=== PATIENT | female | born 1980 | race Caucasian/White ===

== ENCOUNTER 2017-07-14 19:43 | Inpatient (IN) | payer OTHER ==
[~2017-07-14] VITALS: Ht 167.6 cm; Wt 95.0 kg
[~2017-07-14 19:43] MED LIST: ALBUTEROL SULF8.5 GM IH; AMBIEN CR12.5 MG PO; BACTRIM,SEPT1 TABLET PO; BENADRYL25 MG PO; BLOOD PRESSURE MED; CLINDAMYCIN HC300 MG PO; DICLOFENAC SODI75 MG PO; DULOXETINE HCL30 MG PO; ENDOCET 5-3251 EACH PO; ENTOCORT EC3 MG PO; HYDROCHLOROTHIA25 MG PO; HYDROXYZINE HCL50 MG PO; IRON325 MG PO; LEVAQUIN750 MG PO; LISINOPRIL10 MG PO; LISINOPRIL5 MG PO; METHADONE 22 MG/1 ML PO; METHADONE PO; METHADONE10 MG PO; METHYLDOPA250 MG PO; Motrin PO; NEURONTIN100 MG PO; NEURONTIN600 MG PO; PAROXETINE HCL10 MG PO; PREDNISONE50 MG PO; PRENATAL TABLE1 EAC3 PO; TRILEPTAL300 MG PO; WELBUTRIN PO; ZESTRIL,PRINIVI10 MG PO; ZOFRAN ODT8 MG PO; ZOLOFT100 MG PO; ZOLOFT25 MG PO; lisinopril PO; methadone PO
[2017-07-14 21:58] LABS: HEMATOCRIT 43.7 % (36.0-46.0); HEMOGLOBIN 15.2 G/DL (11.9-15.5); MCH 31.9 PG (29.0-34.0); MCHC 34.8 G/DL (30.0-36.0); MCV 91.8 FL (83-99); PLATELET COUNT 295 K/uL (156-360); RBC DIS.WIDTH-CV 13.4 % (11.8-14.6); RBC DIS.WIDTH-SD 45.4 % (39-53); RED BLOOD COUNT 4.76 M/uL (3.80-5.20); WHITE BLOOD COUNT 11.3 K/uL (4.1-10.2)
[2017-07-14 22:15] LABS: CHLORIDE 105 mEq/L (99-109); POTASSIUM 4.2 mEq/L (3.7-5.4); SODIUM 138 mEq/L (136-147)
[2017-07-14 22:17] LABS: GLUCOSE 105 mg/dL (70-99)
[2017-07-14 22:20] LABS: SERUM ETHYL ALCOHOL 199 mg/dL
[2017-07-14 22:21] LABS: CREATININE 0.9 mg/dL (0.6-1.3); GFR ESTIMATE (CALCULATED) > 59 mL/min/
[2017-07-14 22:22] LABS: UREA NITROGEN (BUN) 10 mg/dL (9-23)
[2017-07-14 22:24] LABS: ACETAMINOPHEN (TYLENOL) < 10 mcg/mL (10-30); SALICYLATE < 5.0 MG/DL (15-30)
[2017-07-15 01:37] LABS: ALBUMIN 4.2 g/dL (3.2-4.8)
[2017-07-15 01:38] LABS: MAGNESIUM 2.3 mg/dL (1.3-2.7)
[2017-07-15 01:42] LABS: TOTAL BILIRUBIN 0.8 mg/dL (0.0-1.0)
[2017-07-15 01:43] LABS: ALKALINE PHOSPHATASE 151 IU/L (3-129)
[2017-07-15 01:45] LABS: AST (GOT) 181 IU/L (2-34)
[2017-07-15 01:46] LABS: ALT (GPT) 125 IU/L (3-49); DIRECT BILIRUBIN 0.5 mg/dL (0.0-0.3)
[2017-07-15 04:53] LABS: BENZODIAZEPINES, URINE SCREEN Negative (200 ng/mL)
[2017-07-15 05:42] LABS: HEMATOCRIT 38.8 % (36.0-46.0); HEMOGLOBIN 13.4 G/DL (11.9-15.5); MCH 32.3 PG (29.0-34.0); MCHC 34.5 G/DL (30.0-36.0); MCV 93.5 FL (83-99); PLATELET COUNT 241 K/uL (156-360); RBC DIS.WIDTH-CV 13.6 % (11.8-14.6); RBC DIS.WIDTH-SD 46.3 % (39-53); RED BLOOD COUNT 4.15 M/uL (3.80-5.20); WHITE BLOOD COUNT 7.2 K/uL (4.1-10.2)
[2017-07-15 06:03] LABS: ALBUMIN 3.5 g/dL (3.2-4.8); CHLORIDE 112 mEq/L (99-109); POTASSIUM 4.1 mEq/L (3.7-5.4); SODIUM 140 mEq/L (136-147)
[2017-07-15 06:06] LABS: GLUCOSE 80 mg/dL (70-99)
[2017-07-15 06:08] LABS: TOTAL PROTEIN 7.5 g/dL (6.4-8.3)
[2017-07-15 06:09] LABS: ALKALINE PHOSPHATASE 132 IU/L (3-129); CREATININE 0.8 mg/dL (0.6-1.3); GFR ESTIMATE (CALCULATED) > 59 mL/min/
[2017-07-15 06:10] LABS: UREA NITROGEN (BUN) 9 mg/dL (9-23)
[2017-07-15 06:11] LABS: AST (GOT) 138 IU/L (2-34)
[2017-07-15 06:12] LABS: ALT (GPT) 112 IU/L (3-49)
[2017-07-15 20:27] VITALS: BP 161/99
[2017-07-16 00:57] VITALS: BP 157/105
[2017-07-16 05:53] LABS: CHLORIDE 102 MEQ/L (99-109); POTASSIUM 4.4 MEQ/L (3.7-5.4); SODIUM 135 MEQ/L (136-147)
[2017-07-16 05:59] LABS: CREATININE 0.7 MG/DL (0.6-1.3); GFR ESTIMATE (CALCULATED) > 59 mL/min/; UREA NITROGEN (BUN) 10 mg/dL (9-23)
[2017-07-16 06:01] LABS: GLUCOSE 108 mg/dL (70-99)
[2017-07-16 08:50] VITALS: BP 133/103
[2017-07-16 11:09] LABS: HEMATOCRIT 39.7 % (36.0-46.0); HEMOGLOBIN 13.6 G/DL (11.9-15.5); MCH 31.4 PG (29.0-34.0); MCHC 34.3 G/DL (30.0-36.0); MCV 91.7 FL (83-99); PLATELET COUNT 241 K/uL (156-360); RBC DIS.WIDTH-CV 12.8 % (11.8-14.6); RBC DIS.WIDTH-SD 42.8 % (39-53); RED BLOOD COUNT 4.33 M/uL (3.80-5.20); WHITE BLOOD COUNT 9.3 K/uL (4.1-10.2)
[2017-07-16 11:16] LABS: ALBUMIN 3.9 G/DL (3.2-4.8); ALKALINE PHOSPHATASE 124 IU/L (3-129); ALT (GPT) 83 IU/L (3-49); AST (GOT) 81 IU/L (2-34); DIRECT BILIRUBIN 0.4 mg/dL (0.0-0.3); TOTAL BILIRUBIN 1.1 MG/DL (0.0-1.0); TOTAL PROTEIN 7.4 G/DL (6.4-8.3)
[2017-07-16 11:48] VITALS: BP 118/77
[2017-07-16 12:04] LABS: APPEARANCE CLEAR ((CLEAR)); BILIRUBIN NEGATIVE; BLOOD NEGATIVE; COLOR YELLOW ((YELLOW)); GLUCOSE (STRIP) NEGATIVE; KETONES NEGATIVE; LEUKOCYTES NEGATIVE; NITRITE NEGATIVE; PROTEIN (STRIP) NEGATIVE; SPECIFIC GRAVITY 1.008 (1.000-1.030); UCUL ADDED? NO
[2017-07-16 16:27] VITALS: BP 143/98
[2017-07-16 19:51] VITALS: BP 157/88
[2017-07-16 23:51] VITALS: BP 126/85
[2017-07-17 03:51] VITALS: BP 118/76
[2017-07-17 07:25] VITALS: BP 130/91
[2017-07-17 14:05] VITALS: BP 134/83
== END 2017-07-17 14:12 | DRG 918 ==
LOC: EME 19:43 → EDOF 07-15 00:56 → 4EAST 07-15 00:56 → ENRESERV 07-15 00:58 → EDOF 07-15 13:53 → ENRESERV 07-15 16:17 → 4EAST 07-15 19:45
PROVIDERS: Emergency Medicine; Hospitalist
DX: T40.3X1A Poisoning by methadone, accidental (unintentional), initial encounter (principal); F32.9 Major depressive disorder, single episode, unspecified; R09.02 Hypoxemia; G89.4 Chronic pain syndrome; F10.129 Alcohol abuse with intoxication, unspecified; F41.9 Anxiety disorder, unspecified; Y90.6 Blood alcohol level of 120-199 mg/100 ml; I10 Essential (primary) hypertension; F14.10 Cocaine abuse, uncomplicated; R45.851 Suicidal ideations; F11.10 Opioid abuse, uncomplicated; M54.9 Dorsalgia, unspecified; Z91.14 Patient's other noncompliance with medication regimen; Z88.0 Allergy status to penicillin; Y92.9 Unspecified place or not applicable; Z88.2 Allergy status to sulfonamides; Z88.8 Allergy status to other drugs, medicaments and biological substances; Z80.3 Family history of malignant neoplasm of breast; Z80.1 Family history of malignant neoplasm of trachea, bronchus and lung; Z91.19 Patient's noncompliance with other medical treatment and regimen
CPT/HCPCS: 71045; 74177; 74178; 80048; 80053; 80076; 80306 90; 81003; 82948; 83735; 85027; 93005; 99281; 99285; G0480; J1650; J2310; J3411; J7030; J7040; J7050

== ENCOUNTER 2017-07-17 13:17 | Inpatient (IN) | payer OTHER ==
[~2017-07-17] VITALS: Ht 167.6 cm; Wt 94.7 kg
[2017-07-17 14:19] VITALS: BP 152/80
[2017-07-17 14:33] VITALS: BP 152/80
[2017-07-17 16:00] VITALS: BP 100/57
[2017-07-18 07:50] VITALS: BP 118/79
[2017-07-18 15:26] VITALS: BP 115/71
[2017-07-19 07:47] VITALS: BP 114/68
[2017-07-19 16:02] VITALS: BP 113/76
[2017-07-19 18:49] VITALS: BP 114/72
[2017-07-20 07:48] VITALS: BP 119/80
[2017-07-20 15:34] VITALS: BP 129/72
[2017-07-21 07:54] VITALS: BP 113/74
[2017-07-21 15:41] VITALS: BP 121/69
[2017-07-22 00:35] VITALS: BP 135/92
[2017-07-22 08:02] VITALS: BP 123/88
[2017-07-22] MEDS ORDERED: CITALOPRAM HBR10 MG PO (09:13)
== END 2017-07-22 10:52 | disposition other institution (70) | DRG 885 ==
LOC: 1WEST 13:17
DX: F32.89 Other specified depressive episodes (principal); F11.222 Opioid dependence with intoxication with perceptual disturbance; R45.851 Suicidal ideations; R45.850 Homicidal ideations; F10.10 Alcohol abuse, uncomplicated; I10 Essential (primary) hypertension; F15.10 Other stimulant abuse, uncomplicated; G89.29 Other chronic pain; R00.0 Tachycardia, unspecified; Z63.4 Disappearance and death of family member; Z91.14 Patient's other noncompliance with medication regimen; Z90.49 Acquired absence of other specified parts of digestive tract; Z88.0 Allergy status to penicillin; Z88.2 Allergy status to sulfonamides; Z88.1 Allergy status to other antibiotic agents; Z88.5 Allergy status to narcotic agent; Z80.3 Family history of malignant neoplasm of breast; Z81.1 Family history of alcohol abuse and dependence; Z81.4 Family history of other substance abuse and dependence
CPT/HCPCS: 97150 GO; 97165 GO; Q0177

== ENCOUNTER 2017-10-06 15:27 | Emergency (ER) | payer OTHER ==
[~2017-10-06] VITALS: Ht 167.6 cm; Wt 89.5 kg
[~2017-10-06 15:27] MED LIST changes: +CITALOPRAM HBR10 MG PO
[2017-10-06 15:56] LABS: BASOPHIL (%) 0.5 % (0-1); BASOPHIL COUNT 0.1 K/uL (0-0.1); EOSINOPHIL (%) 1.3 % (0-5); EOSINOPHIL COUNT 0.2 K/uL (0-0.3); HEMATOCRIT 44.2 % (36.0-46.0); HEMOGLOBIN 16.1 G/DL (11.9-15.5); IMMATURE GRANULOCYTE (%) 0.4 % (0.0-0.7); LYMPHOCYTE (%) 24.6 % (15-42); LYMPHOCYTE COUNT 3.5 K/uL (1.0-2.8); MCH 33.8 PG (29.0-34.0); MCHC 36.4 G/DL (30.0-36.0); MCV 92.7 FL (83-99); MONOCYTE (%) 6.3 % (3-12); MONOCYTE COUNT 0.9 K/uL (0-0.8); NEUTROPHIL (%) 66.9 % (45-76); NEUTROPHIL COUNT 9.4 K/uL (1.8-6.4); PLATELET COUNT 258 K/uL (156-360); RBC DIS.WIDTH-CV 13.3 % (11.8-14.6); RBC DIS.WIDTH-SD 45.6 % (39-53); RED BLOOD COUNT 4.77 M/uL (3.80-5.20); WHITE BLOOD COUNT 14.1 K/uL (4.1-10.2)
[2017-10-06 16:08] LABS: CHLORIDE 106 mEq/L (99-109); POTASSIUM 2.8 mEq/L (3.7-5.4); SODIUM 140 mEq/L (136-147)
[2017-10-06 16:09] LABS: MAGNESIUM 2.3 mg/dL (1.3-2.7)
[2017-10-06 16:11] LABS: GLUCOSE 129 mg/dL (70-99); TOTAL PROTEIN 8.3 g/dL (6.4-8.3)
[2017-10-06 16:13] LABS: SERUM ETHYL ALCOHOL 266 mg/dL; TOTAL BILIRUBIN 0.9 mg/dL (0.0-1.0)
[2017-10-06 16:14] LABS: CREATININE 0.8 mg/dL (0.6-1.3); GFR ESTIMATE (CALCULATED) > 59 mL/min/
[2017-10-06 16:15] LABS: ALKALINE PHOSPHATASE 101 IU/L (3-129)
[2017-10-06 16:16] LABS: AST (GOT) 129 IU/L (2-34); UREA NITROGEN (BUN) 7 mg/dL (9-23)
[2017-10-06 16:17] LABS: APPEARANCE CLEAR ((CLEAR)); BILIRUBIN NEGATIVE; BLOOD NEGATIVE; COLOR COLORLESS ((YELLOW)); GLUCOSE (STRIP) NEGATIVE; KETONES NEGATIVE; LEUKOCYTES TRACE; NITRITE NEGATIVE; PROTEIN (STRIP) NEGATIVE; SPECIFIC GRAVITY 1.002 (1.000-1.030); UROBILINOGEN 0.2 MG/DL (0.2-1.0)
[2017-10-06 16:18] LABS: ACETAMINOPHEN (TYLENOL) < 10 mcg/mL (10-30); ALT (GPT) 89 IU/L (3-49); SALICYLATE < 5.0 MG/DL (15-30)
[2017-10-06 16:19] LABS: LIPASE 38 U/L (1.0-51.0)
[2017-10-06 16:26] LABS: AMPHETAMINE NEGATIVE (500 ng/mL); BACTERIA NONE SEEN /HPF; BARBITURATES NEGATIVE (200 ng/mL); BENZODIAZEPINES NEGATIVE (150 ng/mL); BUPRENORPHINE NEGATIVE (10 ng/mL); COCAINE PRESUMPTIVE POSITIVE (150 ng/mL); EPITHELIAL CELLS NONE SEEN /HPF; METHADONE NEGATIVE (200 ng/mL); METHAMPHETAMINE NEGATIVE (500 ng/mL); MUCUS NONE SEEN /LPF; OPIATES (MORPHINE) NEGATIVE (100 ng/mL); OXYCODONE NEGATIVE (100 ng/mL); PHENCYCLIDINE NEGATIVE (25 ng/mL); PROPOXYPHENE NEGATIVE (300 ng/mL); RED BLOOD CELLS 0-5 /HPF (0-5); THC CANNABINOIDS NEGATIVE (50 ng/mL); TRICYCLIC ANTIDEPRESSANTS NEGATIVE (300 ng/mL); UCUL ADDED? NO; WHITE BLOOD CELLS 0-5 /HPF (0-5)
[2017-10-06 16:34] LABS: QUANTITATIVE HCG < 4.0 MIU/ML
[2017-10-06 16:38] LABS: TROP-I INTERPRETATION NEGATIVE; TROPONIN-I < 0.01 ng/mL (0.0-0.30)
[2017-10-06 21:00] LABS: CHLORIDE 109 mEq/L (99-109); SODIUM 141 mEq/L (136-147)
[2017-10-06 21:02] LABS: GLUCOSE 107 mg/dL (70-99)
[2017-10-06 21:04] LABS: POTASSIUM 3.6 mEq/L (3.7-5.4)
[2017-10-06 21:06] LABS: CREATININE 0.8 mg/dL (0.6-1.3); GFR ESTIMATE (CALCULATED) > 59 mL/min/
[2017-10-06 21:08] LABS: UREA NITROGEN (BUN) 5 mg/dL (9-23)
[2017-10-06 21:09] LABS: ACETAMINOPHEN (TYLENOL) < 10 mcg/mL (10-30); SALICYLATE < 5.0 MG/DL (15-30)
[2017-10-06 21:12] LABS: TROP-I INTERPRETATION NEGATIVE; TROPONIN-I < 0.01 ng/mL (0.0-0.30)
[2017-10-07 11:58] VITALS: BP 168/98
== END 2017-10-07 12:01 ==
LOC: EME 15:27
PROVIDERS: Emergency Medicine
DX: R45.851 Suicidal ideations (principal); T43.221A Poisoning by selective serotonin reuptake inhibitors, accidental (unintentional), initial encounter; T50.2X1A Poisoning by carbonic-anhydrase inhibitors, benzothiadiazides and other diuretics, accidental (unintentional), initial encounter; F10.129 Alcohol abuse with intoxication, unspecified; F14.10 Cocaine abuse, uncomplicated; R00.0 Tachycardia, unspecified; R94.31 Abnormal electrocardiogram [ECG] [EKG]; Y90.8 Blood alcohol level of 240 mg/100 ml or more; K21.9 Gastro-esophageal reflux disease without esophagitis; K50.90 Crohn's disease, unspecified, without complications; F17.200 Nicotine dependence, unspecified, uncomplicated; Z90.49 Acquired absence of other specified parts of digestive tract; Z98.890 Other specified postprocedural states; Z88.0 Allergy status to penicillin; Z88.5 Allergy status to narcotic agent; Z88.2 Allergy status to sulfonamides; Z88.8 Allergy status to other drugs, medicaments and biological substances
CPT/HCPCS: 80048 91; 80053; 81003; 83690; 83735; 84484; 84702; 84999; 85025; 90837; 93005; 99281; 99284; G0480; J3480; J7040